=== PATIENT | female | born 1990 | race African-American/Black ===

== ENCOUNTER 2017-06-06 12:17 | Emergency (ER) | payer MEDICAID, OTHER ==
[~2017-06-06] VITALS: Ht 160 cm; Wt 64.0 kg
[~2017-06-06 12:17] MED LIST: PREN1TAB23
[2017-06-06 12:21] VITALS: BP 117/73
[2017-06-06 15:44] LABS: BASOPHILS % 0.3 % (0.0-2.0); EOSINOPHILS % 3.8 % (0.0-5.0); HEMATOCRIT. 38.3 % (36.0-48.0); HEMOGLOBIN. 13.3 g/dL (12.0-16.0); LYMPHOCYTES % 40.4 % (20.0-50.0); MEAN CORPUSCULAR HEMOGLOBIN 31.6 pg (28.0-32.0); MONOCYTES % 4.3 % (2.0-8.0); NEUTROPHILS % 51.2 % (40.0-76.0); PLATELET 234 x1000/uL (130-400); RED BLOOD CELL COUNT 4.21 mill/uL (4.2-5.4); RED CELL DISTRIBUTION WIDTH 12.7 % (11.6-14.6)
[2017-06-06 15:49] LABS: INR 1.1; PROTHROMBIN TIME 11.4 sec (9.4-11.6)
[2017-06-06 16:09] LABS: HCG SCREEN NEGATIVE
[2017-06-06] MEDS ORDERED: ACETAMINOPHEN 500MG TABLET PO ONE (16:30)
== END 2017-06-06 17:30 | disposition home or self-care (01) ==
LOC: ER 12:47
DX: N93.9 Abnormal uterine and vaginal bleeding, unspecified (principal)
CPT/HCPCS: 36415; 76830; 76856; 84703; 85025; 85610; 99285; Z7610

== ENCOUNTER 2018-06-21 15:39 | Emergency (ER) | payer MEDICAID, MEDICARE, OTHER ==
[~2018-06-21] VITALS: Ht 160 cm; Wt 68.0 kg
[2018-06-21 17:20] LABS: BASOPHILS % 0.6 % (0.0-2.0); EOSINOPHILS % 3.7 % (0.0-5.0); HEMATOCRIT. 37.4 % (36.0-48.0); HEMOGLOBIN. 12.8 g/dL (12.0-16.0); LYMPHOCYTES % 31.1 % (20.0-50.0); MEAN CORPUSCULAR HEMOGLOBIN 32.2 pg (28.0-32.0); MEAN PLATELET VOLUME 7.1 fl (7.4-10.4); MONOCYTES % 4.5 % (2.0-8.0); NEUTROPHILS % 60.1 % (40.0-76.0); PLATELET 235 x1000/uL (130-400); RED BLOOD CELL COUNT 3.97 mill/uL (4.2-5.4)
[2018-06-21 17:24] LABS: CHLORIDE 108 mEq/L (98-107)
[2018-06-21 17:41] LABS: CLARITY URINE CLEAR (CLEAR); COLOR URINE YELLOW (YELLOW); KETONES URINE TRACE (NEGATIVE); LEUKOCYTE ESTERASE URINE 1+ (NEGATIVE); NITRITE URINE NEGATIVE (NEGATIVE); OCCULT BLOOD URINE 3+ (NEGATIVE); PH URINE 5.5 (4.5-8.0); PROTEIN URINE NEGATIVE (NEGATIVE); SPECIFIC GRAVITY URINE 1.025 (1.005-1.030); UROBILINOGEN URINE 0.2 E.U./dL (0.2-1.0)
[2018-06-21 17:49] LABS: B-HCG QUANTITATIVE 1979 mIU/mL (<3)
[2018-06-21] MEDS ORDERED: ACETAMINOPHEN 500MG TABLET PO ONE (18:15)
[2018-06-21 20:57] VITALS: BP 102/66
== END 2018-06-21 21:03 | disposition home or self-care (01) ==
LOC: ER 15:39
DX: O20.0 Threatened abortion (principal); Z3A.00 Weeks of gestation of pregnancy not specified; F12.10 Cannabis abuse, uncomplicated
CPT/HCPCS: 36415; 76801; 81025; 84702; 86850; 86900; 99284

== ENCOUNTER 2018-06-24 08:24 | Emergency (ER) | payer MEDICAID, MEDICARE ==
[~2018-06-24] VITALS: Ht 160 cm; Wt 65.0 kg
[2018-06-24] MEDS ORDERED: ACETAMINOPHEN 325MG TABLET PO STA (09:16)
[2018-06-24 09:31] LABS: BASOPHILS % 0.6 % (0.0-2.0); EOSINOPHILS % 3.7 % (0.0-5.0); HEMATOCRIT. 37.6 % (36.0-48.0); HEMOGLOBIN. 12.9 g/dL (12.0-16.0); LYMPHOCYTES % 33.3 % (20.0-50.0); MEAN CORPUSCULAR HEMOGLOBIN 32.3 pg (28.0-32.0); MEAN CORPUSCULAR VOLUME 94.2 fL (81.0-99.0); MEAN PLATELET VOLUME 7.5 fl (7.4-10.4); MONOCYTES % 4.8 % (2.0-8.0); NEUTROPHILS % 57.6 % (40.0-76.0); PLATELET 253 x1000/uL (130-400); RED CELL DISTRIBUTION WIDTH 12.6 % (11.6-14.6)
[2018-06-24 09:43] LABS: CHLORIDE 105 mEq/L (98-107)
[2018-06-24 09:53] LABS: B-HCG QUANTITATIVE 464 mIU/mL (<3)
[2018-06-24 11:11] VITALS: BP 100/69
== END 2018-06-24 11:12 | disposition home or self-care (01) ==
LOC: ER 08:24
DX: O03.9 Complete or unspecified spontaneous abortion without complication (principal); F12.10 Cannabis abuse, uncomplicated; Z3A.08 8 weeks gestation of pregnancy
CPT/HCPCS: 36415; 80048; 84702; 99283

== ENCOUNTER 2020-02-14 15:13 | Emergency (ER) | payer SELFPAY ==
[~2020-02-14] VITALS: Ht 160 cm; Wt 64.0 kg
[2020-02-14 16:00] VITALS: BP 117/81
== END 2020-02-14 20:23 | disposition left against medical advice (07) ==
LOC: ER 15:44
DX: Z53.21 Procedure and treatment not carried out due to patient leaving prior to being seen by health care provider (principal)